=== PATIENT | female | born 1975 | race Caucasian/White ===

== ENCOUNTER 2023-09-15 14:08 | Emergency (ER) | payer OTHER ==
[~2023-09-15] VITALS: Ht 167.6 cm; Wt 131.5 kg
[2023-09-15 14:10] VITALS: BP 175/98; PULSE 90; RESP 22; TEMP 98.2; O2SAT 99
[2023-09-15] MEDS ORDERED: CEPH-588 PO (14:54)
[2023-09-15] MEDS ORDERED: CLOT1CRE82 TP (14:54)
== END 2023-09-15 15:04 | disposition home or self-care (01) ==
LOC: MED 14:08
DX: B35.4 Tinea corporis (principal); R03.0 Elevated blood-pressure reading, without diagnosis of hypertension; Z79.899 Other long term (current) drug therapy
CPT/HCPCS: 99283